=== PATIENT | male | born 1955 | race Caucasian/White ===

== ENCOUNTER 2018-04-30 18:32 | Emergency (ER) | payer BC ==
[2018-04-30 19:05] VITALS: BP 127/97
[2018-04-30] MEDS ORDERED: Lidocaine 2% PF * 5 ML VIAL INJ ONE (19:26)
--- NOTE | 2018-04-30 19:27 | UC ---
Laceration HPI - HPI Summary HPI Summary: 62 yo male presents with RIGHT elbow injury. 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 Hit his right elbow against the ladder and sustained a laceration. Did not hit his head or have LOC. He bandaged the area and continued working. Unsure date of his last tetanus. - History Of Current Complaint Chief Complaint: UCLaceration Stated Complaint: ELBOW INJURY Time Seen by Provider: 04/30/18 19:26 Hx Obtained From: Patient Laceration Location: Elbow Mechanism Of Injury: Blunt Trauma Onset/Duration: Sudden Onset Severity: Mild Pain Intensity: 1 Pain Scale Used: 0-10 Numeric - Allergies/Home Medications Allergies/Adverse Reactions: Allergies Allergy/AdvReac Type Severity Reaction Status Date / Time meperidine [From Demerol] Allergy Hallucinati Verified 04/30/18 19:06 ons Home Medications: Home Medications Cholecalciferol (Vitamin D3) [Vitamin D3] 1,000 unit PO DAILY 04/30/18 [History Confirmed 04/30/18] Glucosamine Sulfate Dipot Chlr [Gnp Glucosamine Maximum S] 1,000 mg PO DAILY [History Confirmed 04/30/18] [place]-3 Fatty Acids/Fish Oil [Fish Oil 1200 mg] 1 cap PO DAILY 04/30/18 [ History Confirmed 04/30/18] PMH/Surg Hx/FS Hx/Imm Hx - Additional Past Medical History Additional PMH: None - Surgical History Surgical History: Yes Surgery Procedure, Year, and Place: Left inguinal hernia. left arm sx (arm was detached from ball socket) - Family History Known Family History: Positive: None - Social History Occupation: Employed Full-time Lives: With Family Alcohol Use: Weekly Substance Use Type: None Smoking Status (MU): Never Smoked Tobacco Have You Smoked in the Last Year: No Review of Systems All Other Systems Reviewed And Are Negative: Yes Constitutional: Positive: Negative Skin: Positive: Other - Laceration right elbow Respiratory: Positive: Negative Cardiovascular: Positive: Negative Neurovascular: Positive: Negative Musculoskeletal: Positive: Negative Neurological: Positive: Negative Psychological: Positive: Negative Physical Exam - Summary Physical Exam Summary: GENERAL: NAD. WDWN. No pain distress. SKIN: RIGHT ELBOW: 1.0cm linear laceration just through the dermis. No FB. CHEST: No accessory muscle use. Breathing comfortably and in no distress. CV: Pulses intact. Cap refill <2seconds MSK: RIGHT ELBOW: FROM. NTTP. Supination and pronation intact without pain. NEURO: Alert. PSYCH: Age appropriate behavior. Triage Information Reviewed: Yes Vital Signs: Initial Vital Signs Temp 98.0 F 04/30/18 19:00 Pulse 60 04/30/18 19:00 Resp 16 04/30/18 19:00 BP 127/97 04/30/18 19:00 Pulse Ox 99 04/30/18 19:00 Vital Signs Reviewed: Yes Laceration Repair - Laceration Repair 1 Description: Linear Laceration Size After Repair: Length (cm) - 1.0 Modified For Repair: No Type Injection: Local Anesthesia Used: 2.0% Lido Irrigation With Pressure Irrigation Device: Yes Closure Material: Sutures - #3 Closure Method: Single Layer Suture Of: Skin Suture Type: Prolene - 4-0 Laceration Course/Dx - Course/Dx Course Of Treatment: Elbow XR: No radiologist reading after 1800, therefore wet read by myself is negative for fracture. The procedure was explained to the pt and all questions were answered. A time out was performed, witnessed, and signed. The area was irrigated with 250mL sterile saline. 1mL of 2% lidocaine without epi was administered and good anesthetization was achieved. In the usual sterile fashion, THREE 4-0 prolene interrupted sutures were placed. The wound was bandaged with telfa. Pt tolerated procedure well. tdap was updated today - Diagnosis Provider Diagnosis: Laceration of elbow, Fall Discharge - Sign-Out/Discharge Documenting (check all that apply): Patient Departure All imaging exams completed and their final reports reviewed: No - Discharge Plan Condition: Stable Disposition: HOME Patient Education Materials: Care For Your Stitches (DC), Laceration (DC) Referrals: Ousmane Dasilva MD [Primary Care Provider] - Additional Instructions: If you develop a fever, shortness of breath, chest pain, new or worsening symptoms - please call your PCP or go to the ED. Your blood pressure was high at todays visit. Please see your primary provider within 4 weeks for recheck and re-evaluation. 1) Please keep the area bandaged, clean, dry, and intact for the next 24- 48hours. 2) If you develop a fever, colored or thick discharge, increased pain or swelling - please call your PCP or go to the ED. 3) Please return in 10 days to have your THREE sutures removed. - Billing Disposition and Condition Condition: STABLE Disposition: Home
[2018-04-30] MEDS ORDERED: Tetan/Diph/Pertus SYR(Tdap)* 0.5 ML SYR(BOOSTRIX) use SYR IM ONE (19:57)
--- NOTE | 2018-05-01 08:35 | UC ---
- EKG/XRAY/CT XRAY: elbow - right elbow - soft tissue swelling, no fracture or intra- articular swelling Course/Dx - Diagnoses Provider Diagnoses: Laceration of elbow, Fall Discharge - Sign-Out/Discharge Documenting (check all that apply): Post-Discharge Follow Up All imaging exams completed and their final reports reviewed: Yes - Discharge Plan Condition: Stable Disposition: HOME Patient Education Materials: Care For Your Stitches (DC), Laceration (DC) Referrals: Ousmane Dasilva MD [Primary Care Provider] - Additional Instructions: If you develop a fever, shortness of breath, chest pain, new or worsening symptoms - please call your PCP or go to the ED. Your blood pressure was high at todays visit. Please see your primary provider within 4 weeks for recheck and re-evaluation. 1) Please keep the area bandaged, clean, dry, and intact for the next 24- 48hours. 2) If you develop a fever, colored or thick discharge, increased pain or swelling - please call your PCP or go to the ED. 3) Please return in 10 days to have your THREE sutures removed. - Billing Disposition and Condition Condition: STABLE Disposition: Home
== END 2018-04-30 20:15 | disposition home or self-care (01) ==
LOC: UCEAST 18:32
DX: S51.012A Laceration without foreign body of left elbow, initial encounter (principal); Z88.5 Allergy status to narcotic agent; W01.198A Fall on same level from slipping, tripping and stumbling with subsequent striking against other object, initial encounter; Y92.9 Unspecified place or not applicable
CPT/HCPCS: 12001; 90471; 90715; 99211; G0463

== ENCOUNTER 2020-06-03 11:04 | Inpatient (IN) ==
[2020-06-03 12:21] LABS: ABS Lymphocytes 0.9 10^3/ul (1.0-4.8); ABS Monocytes 0.8 10^3/ul (0-0.8); ABS Neutrophils 6.3 10^3/ul (1.5-7.7); Eosinophil % 0.1 %; Hematocrit 42 % (42-52); Hemoglobin 14.2 g/dL (14.0-18.0); Lymphocyte % 11.3 %; Mean Corpuscular HGB Conc 34 g/dL (31-36); Mean Corpuscular Hemoglobin 32 pg (27-31); Mean Corpuscular Volume 95 fL (80-94); Mean Platelet Volume 9.5 fL (7.4-10.4); Platelet Count 211 10^3/uL (150-450); Red Blood Count 4.46 10^6 /uL (4.18-5.48); Red Cell Distribution Width 13 % (10-15); White Blood Count 8.1 10^3/uL (3.5-10.8)
[2020-06-03 12:30] LABS: INR 1.28 (0.82-1.09)
[2020-06-03 12:32] LABS: Albumin 4.1 g/dL (3.2-5.2); Albumin/Globulin Ratio 2.1 (1-3); C Reactive Protein 3.04 mg/L (<8.01); Calcium 9.2 mg/dL (8.6-10.3); EGFR African American 91.3 (>60); EGFR Non-African American 75.5 (>60); Potassium 3.8 mmol/L (3.5-5.0); Total Protein 6.1 g/dL (6.4-8.9)
[2020-06-03 12:33] LABS: Troponin I 0.01 ng/mL (<0.03)
[2020-06-04 05:54] LABS: ABS Eosinophils 0.1 10^3/ul (0-0.6); ABS Lymphocytes 1.2 10^3/ul (1.0-4.8); ABS Monocytes 0.8 10^3/ul (0-0.8); ABS Neutrophils 4.1 10^3/ul (1.5-7.7); Eosinophil % 0.9 %; Hematocrit 39 % (42-52); Hemoglobin 13.1 g/dL (14.0-18.0); Lymphocyte % 19.2 %; Mean Corpuscular HGB Conc 34 g/dL (31-36); Mean Corpuscular Hemoglobin 31 pg (27-31); Mean Corpuscular Volume 94 fL (80-94); Mean Platelet Volume 9.3 fL (7.4-10.4); Platelet Count 175 10^3/uL (150-450); Red Blood Count 4.18 10^6 /uL (4.18-5.48); Red Cell Distribution Width 13 % (10-15); White Blood Count 6.2 10^3/uL (3.5-10.8)
[2020-06-04 06:03] LABS: INR 1.32 (0.82-1.09)
[2020-06-04 06:09] LABS: BUN/Creatinine Ratio 21.1 (8-20); Calcium 8.6 mg/dL (8.6-10.3); EGFR African American 96.9 (>60); EGFR Non-African American 80.1 (>60); Potassium 3.9 mmol/L (3.5-5.0)
[2020-06-04] MEDS ORDERED: NS 0.9% 1000 ml BAG 1,000 ML IV SCH (08:00)
[2020-06-04] MEDS ORDERED: Midazolam 5 mg/5 ml VIAL 1 mg/ml 5 ml VIAL (5 mg) ONE (14:01)
[2020-06-04] MEDS ORDERED: fentaNYL 100 mcg/2 ml 50 MCG/ML VIAL ONE (14:01)
[2020-06-04] MEDS ORDERED: Lidocaine 1% VIAL 10 MG/ML VIAL ONE (14:01)
[2020-06-04] MEDS ORDERED: Enoxaparin 40 MG/0.4 ML SYR SUBCUT SCH (17:00)
[2020-06-05] MEDS ORDERED: Enoxaparin 40 MG/0.4 ML SYR SUBCUT SCH ×2 (06:00→09:00)
[2020-06-05 22:26] VITALS: BP 118/81
[2020-06-07 16:59] LABS: Lactate Dehydrogenase, BF 1220 U/L
== END 2020-06-05 14:50 | disposition home or self-care (01) | DRG 136 ==
LOC: ED 11:04 → MEDTELE 13:56
PROVIDERS: ADMIT Internal Medicine; ATTEND Internal Medicine

== ENCOUNTER 2023-11-05 15:26 | Observation (INO) ==
[2023-11-05] MEDS ORDERED: ceFAZolin 1 GM in Dextrose 1 GM/50 ML BAG IVPB ONE ×2 (15:48→18:00)
[2023-11-05 17:30] LABS: ABS Lymphocytes 0.2 10^3/uL (1.0-4.8); ABS Monocytes 0.6 10^3/uL (0.0-1.1); ABS Neutrophils 4.1 10^3/uL (1.5-7.6); Eosinophil % 0.1 %; Hemoglobin 11.8 g/dL (13.2-16.3); Lymphocyte % 4.9 %; Mean Corpuscular Hemoglobin 35.6 pg (27-33); Mean Corpuscular Hgb Conc 34.7 g/dL (31-36); Mean Corpuscular Volume 102.6 fL (80-97); Mean Platelet Volume 8.1 fL (7.5-11.2); Platelet Count 101 10^3/uL (150-450); Red Blood Count 3.31 10^6/uL (4.06-5.63); Red Cell Distribution Width 16.6 % (12-17); White Blood Count 4.9 10^3/uL (3.6-10.2)
[2023-11-05 17:34] LABS: INR 1.14 (0.85-1.14)
[2023-11-05] MEDS: Tetan/Diph/Pertus SYR(Tdap) 0.5 ML SYR(BOOSTRIX) use SYR contains LATEX IM ONE (17:59)
[2023-11-05] MEDS: ceFAZolin 1 GM X ONE DOSE (AddVan) IVPB (18:00)
[2023-11-05 18:02] LABS: Urine Appearance Clear; Urine Bilirubin Negative (Negative); Urine Blood 1+ (Negative); Urine Color Light-Yellow; Urine Glucose Negative (Negative); Urine Ketones Negative (Negative); Urine Nitrite Negative (Negative); Urine Protein Negative (Negative); Urine Specific Gravity 1.015 (1.002-1.030); Urine Urobilinogen Negative (Negative); Urine pH 6.5 (5.0-8.0)
[2023-11-05 18:22] LABS: Urine Bacteria Absent /HPF (Absent); Urine Red Blood Cell 1+(3-5/hpf) /HPF (0-Trace); Urine White Blood Cell Trace(0-5/hpf) /HPF (0-Trace)
[2023-11-05 18:33] LABS: Albumin 3.5 g/dL (3.2-5.2); Albumin/Globulin Ratio 1.8 (1-3); Calcium 7.9 mg/dL (8.6-10.3); Creatinine, Serum 0.81 mg/dL (0.67-1.17); Globulin 1.9 g/dL (2-4); Potassium 3.3 mmol/L (3.5-5.0); Total Bilirubin 0.7 mg/dL (0.2-1.0); Total Protein 5.4 g/dL (6.4-8.9); eGFR CKD-EPI 96.6 (>60)
[2023-11-05 18:44] LABS: High Sensitivity Troponin 1 Hr 218 pg/mL (<20)
[2023-11-05] MEDS: Lactated Ringers 1000 ml BAG 1,000 ML IV ONE (18:48)
[2023-11-05] MEDS: Iohexol 350 (CONTRAST) 500 ML MDV IV ONE (21:09)
[2023-11-05] MEDS: Potassium Chlor 20 meq TAB.ER PO ONE (23:14)
[2023-11-06] MEDS ORDERED: Ondansetron 4 mg VIAL 2 MG/ML 2 ml VIAL IV PRN (00:22)
[2023-11-06] MEDS ORDERED: Sulfur Hexaflouride MICROSPHR 25 MG VIAL IV PRN (00:29)
[2023-11-06 00:34] LABS: Magnesium 1.7 mg/dL (1.9-2.7)
[2023-11-06 01:17] LABS: High Sensitivity Troponin 3 Hr 461 pg/mL (<20)
[2023-11-06 06:24] LABS: ABS Lymphocytes 0.3 10^3/uL (1.0-4.8); ABS Monocytes 0.4 10^3/uL (0.0-1.1); ABS Neutrophils 2.7 10^3/uL (1.5-7.6); Eosinophil % 0.6 %; Hematocrit 34.5 % (38-53); Hemoglobin 11.6 g/dL (13.2-16.3); Lymphocyte % 8.4 %; Mean Corpuscular Hemoglobin 34.7 pg (27-33); Mean Corpuscular Hgb Conc 33.5 g/dL (31-36); Mean Corpuscular Volume 103.5 fL (80-97); Mean Platelet Volume 8.7 fL (7.5-11.2); Nucleated Red Blood Cells % 0.1 %/100WBC (0.0-0.8); Platelet Count 107 10^3/uL (150-450); Red Blood Count 3.34 10^6/uL (4.06-5.63); Red Cell Distribution Width 16.8 % (12-17); White Blood Count 3.5 10^3/uL (3.6-10.2)
[2023-11-06 07:12] LABS: Anion Gap 6 mmol/L (2-16); Blood Urea Nitrogen 10 mg/dL (6-24); CO2 Carbon Dioxide 24 mmol/L (22-32); Calcium 8.2 mg/dL (8.6-10.3); Chloride 108 mmol/L (101-111); Glucose 91 mg/dL (70-100); Magnesium 1.8 mg/dL (1.9-2.7); Sodium 138 mmol/L (135-145)
[2023-11-06 07:38] LABS: Folate 11.14 ng/mL (5.90-24.80); Vitamin B12 321 pg/mL (180-914)
[2023-11-06] MEDS: Magnesium Sulfate IV 1GM/100ML 1 GM/100 ML BAG IV ONE (08:28)
[2023-11-06] MEDS: Lactated Ringers 1000 ml BAG 1,000 ML IV SCH (11:00)
[2023-11-06 21:27] LABS: Potassium, Whole Blood 4.2 mmol/L (3.4-4.5)
[2023-11-07] MEDS: Senna TAB 8.6 mg TAB PO PRN (08:58)
[2023-11-07] MEDS: Gadoteridol (CONTRAST) 279.3 MG/ML 10 ML IV ONE (20:41)
[2023-11-08 13:46] VITALS: BP 103/73
== END 2023-11-08 14:59 | disposition home or self-care (01) ==
LOC: ED 15:26 → EDHOLD 15:26 → SUATTDRO 23:25 → MEDTELE 11-06 07:50
PROVIDERS: ADMIT Hospitalist; ATTEND Student in an Organized Health Care Education/Training Program